=== PATIENT | male | born 1985 | race Two or more races ===

== ENCOUNTER 2023-03-19 15:44 | Outpatient (CLI) | payer SELFPAY | END 2023-03-19 15:45 | disposition critical access hospital (66) | LOC: EMS 15:44 | DX: R10.84 Generalized abdominal pain (principal); R11.2 Nausea with vomiting, unspecified; F10.90 Alcohol use, unspecified, uncomplicated | CPT/HCPCS: A0425; A0429 ==

== ENCOUNTER 2023-03-19 16:34 | Emergency (ER) | payer SELFPAY ==
[2023-03-19] MEDS ORDERED: SUCRALFATE 1 GM/10 ML UDC PO STA (16:44)
[2023-03-19] MEDS ORDERED: ONDANSETRON 4 MG/2 ML VIAL IVP STA (16:44)
[2023-03-19] MEDS ORDERED: SODIUM CHLORIDE 0.9% 1,000 ML IV STA ×2 (16:44)
[2023-03-19] MEDS ORDERED: PANTOPRAZOLE 40 MG VIAL IVP STA (16:44)
[2023-03-19] MEDS ORDERED: MAG HYDROX/AL HYDROX/SIMETH 30 ML UDC PO STA (16:44)
[2023-03-19 17:07] LABS: PARTIAL THROMBOPLASTIN TIME 28.9 secs (24.9-33.3)
[2023-03-19 17:09] LABS: BASOPHILS % (AUTO) 4.1 %; EOSINOPHILS % (AUTO) 1.1 %; HCT - HEMATOCRIT 30.4 % (42.0-52.0); HGB - HEMOGLOBIN 8.6 g/dL (14.0-18.0); LYMPHOCYTES % (AUTO) 33.1 %; MEAN CORPUSCULAR HEMOGLOBIN 19.1 pg (27.0-31.0); MEAN CORPUSCULAR HGB CONC 28.3 g/dL (32.0-36.0); MEAN CORPUSCULAR VOLUME 67.6 fL (80.0-94.0); MEAN PLATELET VOLUME 9.4 fL (7.4-11.4); MONOCYTES % (AUTO) 12.6 %; NEUTROPHILS % (AUTO) 48.7 %; PLT - PLATELET COUNT 271 10^3/uL (130-450); RED CELL DISTRIBUTION WIDTH 19.3 % (12.0-15.0); WHITE BLOOD COUNT 2.7 x10^3/uL (4.8-10.8)
[2023-03-19 17:11] LABS: ALBUMIN 4.6 g/dL (3.2-5.5); ALBUMIN/GLOBULIN RATIO 1.4 (1.0-2.2); BILIRUBIN,TOTAL 0.4 mg/dL (0.2-1.0); CALCIUM 8.8 mg/dL (8.5-10.3); CREATININE 0.6 mg/dL (0.6-1.3); ETOH - ETHANOL 188.4 mg/dL; INR 1.2 (0.8-1.2); MAGNESIUM 1.8 mg/dL (1.7-2.3); PHOSPHORUS 3.3 mg/dL (2.5-5.0); POTASSIUM 3.7 mmol/L (3.5-4.5); PT - PROTHROMBIN TIME 12.5 secs (9.9-12.6)
[2023-03-19 17:13] LABS: ABNORMAL LYMPHS % (MANUAL) 0 %; BAND NEUTROPHILS % (MANUAL) 0 %
[2023-03-19 17:35] LABS: BASOPHILS # (MANUAL) 0.1 10^3/uL (0-0.1); BASOPHILS % (MANUAL) 2 %; DIFFERENTIAL COMMENT MANUAL DIFFERENTIAL; EOSINOPHILS # (MANUAL) 0.1 10^3/uL (0-0.7); LYMPHOCYTES # (MANUAL) 0.9 10^3/uL (1.5-3.5); LYMPHOCYTES % (MANUAL) 32 %; MONOCYTES # (MANUAL) 0.3 10^3/uL (0.0-1.0); NEUTROPHILS # (MANUAL) 1.4 10^3/uL (1.5-6.6); PLATELET ESTIMATE, MANUAL NORMAL (130-450,000) (NORMAL); PLATELET MORPHOLOGY NORMAL APPEARANCE (NORMAL); WBC MORPHOLOGY (MULTIPLE) NORMAL APPEARANCE (NORMAL)
[2023-03-19 17:38] LABS: BILIRUBIN,URINE NEGATIVE (NEGATIVE); GLUCOSE, URINE (UA) NEGATIVE (NEGATIVE); KETONES,URINE (UA) NEGATIVE (NEGATIVE); LEUKOCYTE ESTERASE, URINE NEGATIVE (NEGATIVE); NITRITE,URINE NEGATIVE (NEGATIVE); OCCULT BLOOD,URINE TRACE-INTA (NEGATIVE); PH,URINE 7.5 PH (5.0-7.5); PROTEIN,URINE TRACE mg/dL (NEGATIVE); UROBILINOGEN,URINE 1 (NORMAL) E.U./dL (NORMAL)
[2023-03-19 17:39] LABS: CLARITY,URINE CLEAR (CLEAR)
[2023-03-19] MEDS ORDERED: PROMETHAZINE INJ 25 MG in SODIUM CHLORIDE 0.9% 50 ML IV STA (18:30)
[2023-03-19] MEDS ORDERED: PROMETHAZINE 25 MG/1 ML VIAL ONE (18:39)
[2023-03-19] MEDS ORDERED: THIAMINE INJ 100 MG, FOLIC ACID INJ 1 MG in SODIUM CHLORIDE 0.9% 1,000 ML IV STA (18:48)
[2023-03-19 19:34] VITALS: O2SAT 98
--- NOTE | 2023-03-19 19:43 | ED Physician Documentation ---
History of Present Illness - Stated complaint Stated Complaint: ETOH/ABD PX - Chief complaint Chief Complaint: Abd Pain - History obtained from History obtained from: Patient, EMS - History of Present Illness Pain level max: 6 Pain level now: 6 - Additonal information Additional information: Patient is a 37-year-old Serbian-speaking male. director of global talent was used for all interactions. He states that he has been drinking heavily for years, drinks 12-18 beers per day. He states that this is to help him sleep. He has developed epigastric abdominal pain. No nausea or vomiting. No diarrhea or constipation. No fevers. No chills. Has never been diagnosed with varices. No history of cirrhosis. He states that he feels tired and weak today. Also states he has burning epigastric abdominal pain. Patient denies being on any medications. Has not taken anything for this. Review of Systems Constitutional: denies: Fever, Chills Respiratory: denies: Cough GI: denies: Nausea, Vomiting, Diarrhea, Hematemesis, Bloody / black stool : denies: Dysuria Skin: denies: Rash Musculoskeletal: denies: Neck pain, Back pain PD PAST MEDICAL HISTORY - Past Medical History Cardiovascular: None Respiratory: None Neuro: None Endocrine/Autoimmune: None GI: None : None HEENT: None Psych: None Musculoskeletal: None Derm: None - Past Surgical History Past Surgical History: No - Present Medications Home Medications: Ambulatory Orders Medication Instructions Recorded Confirmed Esomeprazole Magnesium [Nexium] 40 mg PO DAILY #30 cap 03/19/23 Famotidine [Pepcid] 20 mg PO BID #60 tablet 03/19/23 Sucralfate [Carafate] 1 gm PO ACHS #60 tablet 03/19/23 - Allergies Allergies/Adverse Reactions: Allergies Allergy/AdvReac Type Severity Reaction Status Date / Time No Known Drug Allergies Allergy Verified 03/19/23 16:33 - Social History Does the pt smoke?: No Smoking Status: Never smoker Does the pt drink ETOH?: Yes ETOH Use: Beer, Liquor Does the pt have substance abuse?: No - Immunizations Immunizations are current?: No - POLST Patient has POLST: No PD ED PE NORMAL - Vitals Vital signs reviewed: Yes - General General: Alert and oriented X 3, No acute distress - HEENT HEENT: PERRL, Moist mucous membranes - Neck Neck: Supple, no meningeal sign - Cardiac Cardiac: RRR, Strong equal pulses - Respiratory Respiratory: No respiratory distress, Clear bilaterally - Abdomen Abdomen: Soft, Non tender, Non distended - Back Back: No CVA TTP, No spinal TTP - Derm Derm: Warm and dry - Extremities Extremities: No edema, No calf tenderness / cord - Neuro Neuro: Alert and oriented X 3 - Psych Psych: Normal mood, Normal affect Results - Vitals Vitals: Vital Signs - 24 hr 03/19/23 03/19/23 03/19/23 16:37 18:47 19:30 Temperature 37.1 C Heart Rate 92 96 103 H Respiratory 12 16 18 Rate Blood Pressure 129/86 H 102/67 147/75 H O2 Saturation 99 99 98 03/19/23 21:11 Temperature Heart Rate 98 Respiratory 18 Rate Blood Pressure 157/57 H O2 Saturation 98 Oxygen O2 Source Room air - Labs Labs: Laboratory Tests 03/19/23 03/19/23 03/19/23 16:53 16:53 16:53 WBC 2.7 L RBC 4.50 L Hgb 8.6 L Hct 30.4 L MCV 67.6 L MCH 19.1 L MCHC 28.3 L RDW 19.3 H Plt Count 271 MPV 9.4 Neut # (Auto) Not Reportable Lymph # (Auto) Not Reportable [place] # (Auto) Not Reportable Eos # (Auto) Not Reportable Baso # (Auto) Not Reportable Absolute Nucleated RBC Not Reportable Total Counted 100 Band Neuts % (Manual) 0 Abnorm Lymph % (Manual) 0 Nucleated RBC % Not Reportable Neutrophils # (Manual) 1.4 L Lymphocytes # (Manual) 0.9 L Monocytes # (Manual) 0.3 Eosinophils # (Manual) 0.1 Basophils # (Manual) 0.1 Differential Comment MANUAL DIFFERENTIAL WBC Morphology NORMAL APPEARANCE Platelet Estimate NORMAL (130-450,000) Platelet Morphology NORMAL APPEARANCE RBC Morph Micro Appear 2+ HYPOCHROMASIA PT 12.5 INR 1.2 APTT 28.9 Sodium 136 Potassium 3.7 Chloride 101 Carbon Dioxide 25 Anion Gap 10.0 BUN 5 L Creatinine 0.6 Estimated GFR (MDRD) 152 Glucose 122 H Calcium 8.8 Phosphorus 3.3 Magnesium 1.8 Total Bilirubin 0.4 AST 127 H ALT 94 H Alkaline Phosphatase 121 Total Protein 8.0 Albumin 4.6 Globulin 3.4 Albumin/Globulin Ratio 1.4 Lipase 142 H Urine Color Urine Clarity Urine pH Ur Specific [place] Urine Protein Urine Glucose (UA) Urine Ketones Urine Occult Blood Urine Nitrite Urine Bilirubin Urine Urobilinogen Ur Leukocyte Esterase Ur Microscopic Review Urine Culture Comments Ethyl Alcohol 188.4 03/19/23 17:15 WBC RBC Hgb Hct MCV MCH MCHC RDW Plt Count MPV Neut # (Auto) Lymph # (Auto) [place] # (Auto) Eos # (Auto) Baso # (Auto) Absolute Nucleated RBC Total Counted Band Neuts % (Manual) Abnorm Lymph % (Manual) Nucleated RBC % Neutrophils # (Manual) Lymphocytes # (Manual) Monocytes # (Manual) Eosinophils # (Manual) Basophils # (Manual) Differential Comment WBC Morphology Platelet Estimate Platelet Morphology RBC Morph Micro Appear PT INR APTT Sodium Potassium Chloride Carbon Dioxide Anion Gap BUN Creatinine Estimated GFR (MDRD) Glucose Calcium Phosphorus Magnesium Total Bilirubin AST ALT Alkaline Phosphatase Total Protein Albumin Globulin Albumin/Globulin Ratio Lipase Urine Color YELLOW Urine Clarity CLEAR Urine pH 7.5 Ur Specific [place] 1.015 Urine Protein TRACE Urine Glucose (UA) NEGATIVE Urine Ketones NEGATIVE Urine Occult Blood TRACE-INTA Urine Nitrite NEGATIVE Urine Bilirubin NEGATIVE Urine Urobilinogen 1 (NORMAL) Ur Leukocyte Esterase NEGATIVE Ur Microscopic Review NOT INDICATED Urine Culture Comments NOT INDICATED Ethyl Alcohol PD Medical Decision Making - ED course Complexity details: reviewed results, re-evaluated patient, considered differential, d/w patient ED course: Patient is well-appearing, nontoxic. Afebrile. He has leukopenia, anemia. Possible myelosuppression due to his alcoholism? He adamantly denies any bleeding. Refuses rectal exam. He feels better after GI cocktail, IV fluids. He does not want to go to detox or rehab. He does not feel suicidal or homicidal. He is tolerating p.o. without difficulty here. Eating and drinking after medications. He was given thiamine and folate as well. Recommend that he follow-up closely with his primary care provider Regarding his alcoholism, anemia and leukopenia. These will all need further workup and can be performed in the emergency department. Patient request to go home at this time. Again director of global talent was used for all interactions. All questions answered. Patient counseled regarding signs and symptoms for which I believe and urgent re-evaluation would be necessary. Patient with good understanding of and agree ment to plan and is comfortable going home at this time This document was made in part using voice recognition software. While efforts are made to proofread this document, sound alike and grammatical errors may occur. Departure - Departure Disposition: 01 Home, Self Care Clinical Impression: Alcoholism, Myelosuppression Alcoholic gastritis Qualifiers: Chronicity: acute Gastritis bleeding: without bleeding Qualified Code(s): K29.20 - Alcoholic gastritis without bleeding Anemia Qualifiers: Anemia type: unspecified type Qualified Code(s): D64.9 - Anemia, unspecified Leukopenia Qualifiers: Leukopenia type: unspecified Qualified Code(s): D72.819 - Decreased white blood cell count, unspecified Condition: Stable Instructions: ED Anemia Type Not Specified, ED Alcohol Intoxication, ED Gastritis, ED Alcohol Abuse Follow-Up: your,doctor in 1 week [Other] Primary/Walk In [facility] [Provider Group] [facility] [Provider Group] Walk In [facility] [Provider Group] [facility] [place] [Provider Group] - Within 1 week Prescriptions: Sucralfate [Carafate] 1 gm PO ACHS #60 tablet Esomeprazole Magnesium [Nexium] 40 mg PO DAILY #30 cap Famotidine [Pepcid] 20 mg PO BID #60 tablet Print Language: Serbian Comments: Your prescription was sent to [facility] in [place]. If you are interested in detox, you can talk to [facility] directly. The number is below. Your white blood cell count and your red blood cell count are both low from your alcohol use. You also have liver damage from your alcohol use. It is highly recommended that you stop drinking. You need to follow-up with your doctor for further care and a possible bone marrow biopsy. You need to see your primary care provider within the next week for repeat lab work and further evaluation and care. Contact: [facility] [address] [place] [id number] Fax: Laureano receta fue enviada a [facility] en [place]. Si ests interesado en la desintoxicacin, puedes hablar directamente con [facility]. El nmero est debajo. Laureano recuento de glbulos blancos y rojos est bajo debido al consumo de alcohol. Tambin tiene mariza heptico debido al consumo de alcohol. Es muy recomendable que dejes de beber. Debe realizar un seguimiento con laureano mdico para recibir ms atencin y giana posible biopsia de mdula sea. Debe consultar a laureano proveedor de atencin primaria dentro de la prxima semana para repetir los anlisis de laboratorio y realizar ms evaluaciones y cuidados. Contacto: Katelyn Jacobszaayden Valenciafreddie [address] [place] [address] [place]: [phone] Fax: Forms: PCP List Discharge Date/Time: 03/19/23 21:12
[2023-03-19 21:12] VITALS: BP 157/57
== END 2023-03-19 21:12 | disposition home or self-care (01) ==
LOC: ED 16:34
DX: K29.20 Alcoholic gastritis without bleeding (principal); D64.9 Anemia, unspecified; D72.819 Decreased white blood cell count, unspecified
CPT/HCPCS: 36415; 80053; 80320; 81003; 83690; 83735; 84100; 85025; 85610; 85730; 96365; 96375; 99284; A9270; J3411; J7040; 81001; 87086